=== PATIENT | male | born 1950 | race Caucasian/White ===

== ENCOUNTER 2019-12-13 13:02 | Observation (INO) ==
[2019-12-13] MEDS ORDERED: 0.9 % Sodium Chloride 1,000 ML IVC ONE (13:46)
[2019-12-13 14:21] LABS: Basophils % 0.7 %; Eosinophils # 0.1 K/mcL (0.0-0.6); Hematocrit 39.6 % (37.5-50.1); Hemoglobin 12.9 g/dL (12.9-16.9); Immature Granulocytes % 0.2 % (0-4); Lymphocytes # 0.6 K/mcL (0.6-4.6); Lymphocytes % 13.8 %; Mean Corpuscular HGB Conc 32.6 g/dL (31.6-35.5); Mean Corpuscular Volume 95.2 fL (83.0-100.0); Mean Platelet Volume 10.4 fL (9.4-12.4); Monocytes # 0.5 K/mcL (0.0-1.3); Monocytes % 11.6 %; Neutrophils # 3.2 K/mcL (1.6-8.9); Platelet Count 150 K/mcL (140-400); Red Blood Count 4.16 M/mcL (4.19-5.50); Red Cell Distribution Width 15.2 % (11.5-14.5); Segmented Neutrophils % 71.7 %; White Blood Count 4.5 K/mcL (4.3-11.1)
[2019-12-13 15:04] LABS: Troponin I 0.06 ng/mL (< 0.04)
[2019-12-13] MEDS ORDERED: levoFLOXacin 750 MG/150 ML 750 MG/150 ML BAG IVPB ONE (15:31)
[2019-12-13 16:05] LABS: Calcium 9.4 mg/dL (8.6-10.3); Potassium 4.1 mEq/L (3.5-5.1)
[2019-12-13] MEDS ORDERED: Aspirin 81 MG TAB.CHEW PO STA (16:24)
[2019-12-13 16:30] LABS: Bilirubin,Urine Negative (Negative); Blood,Urine Negative (Negative); Clarity,Urine Clear (Clear); Color,Urine Yellow (Yellow); Glucose,Urine (UA) Normal (Normal); Ketones,Urine Negative (Negative); Leukocyte Esterase,Urine Negative (Negative); Nitrite,Urine Negative (Negative); Protein,Urine Negative (Neg-Trace); Specific Gravity,Urine 1.015 (1.010-1.025); Urobilinogen,Urine Normal (Normal)
[2019-12-13] MEDS ORDERED: Naloxone 0.4 MG/ML INJ IVP PRN (17:28)
[2019-12-13] MEDS ORDERED: 0.9 % Sodium Chloride 1,000 ML IVC SCH (17:30)
[2019-12-13 17:32] LABS: VBG HCO3 21 mEq/L (21-27); VBG PCO2 30 mmHg (41-51); VBG PH 7.46 pH Units (7.32-7.42); VBG PO2 202 mmHg (25-50)
[2019-12-13] MEDS ORDERED: diazePAM 10 MG/2 ML SYRINGE IVP PRN ×5 (17:32)
[2019-12-13] MEDS ORDERED: D5% in Water 1,000 ML IVC PRN (17:34)
[2019-12-13] MEDS ORDERED: Chlorhexidine Rinse 15 ML MOUTHWASH PO PRN (17:34)
[2019-12-13] MEDS ORDERED: Dextrose Gel 15 GM/37.5 ML TUBE PO PRN ×2 (17:34)
[2019-12-13] MEDS ORDERED: *HR* Dextrose 50 % in Water (Syg) 50 ML SYRINGE IVP PRN (17:34)
[2019-12-13] MEDS ORDERED: Thiamine (B-1) 100 MG, Folic Acid 1 MG, MVI, adult with vitamin K 10 ML in 0.9 % Sodi... IVPB SCH (18:00)
[2019-12-13 18:02] LABS: Ethanol < 10 mg/dL (Less than 10); Magnesium 1.7 mg/dL (1.6-2.6); Salicylate < 2.5 mg/dL (15.0-30.0)
[2019-12-13] MEDS ORDERED: diazePAM 5 MG TABLET PO ONE (20:11)
[2019-12-13] MEDS ORDERED: Insulin LISPRO 300 UNITS/3 ML VIAL SQ SCH (21:00)
[2019-12-13] MEDS: Gabapentin 300 MG CAPSULE PO SCH (21:07)
[2019-12-13] MEDS: Apixaban 5 MG TABLET PO SCH (21:07)
[2019-12-13] MEDS: Metoprolol 100 MG TABLET PO SCH (21:07)
[2019-12-14 02:39] LABS: Calcium 8.5 mg/dL (8.6-10.3); Chol/HDL Ratio 2.2 (0-4.9); Magnesium 1.8 mg/dL (1.6-2.6); Potassium 3.6 mEq/L (3.5-5.1)
[2019-12-14 02:53] LABS: Thyroid Stimulating Hormone 0.806 mcIU/mL (0.340-5.600)
[2019-12-14 03:17] LABS: Estimated Average Glucose 134 mg/dl
[2019-12-14] MEDS: Gabapentin 300 MG CAPSULE PO SCH ×2 (08:02→15:03)
[2019-12-14] MEDS: Apixaban 5 MG TABLET PO SCH (08:02)
[2019-12-14] MEDS: Metoprolol 100 MG TABLET PO SCH (08:02)
[2019-12-14] MEDS: Insulin LISPRO 300 UNITS/3 ML VIAL SQ SCH ×2 (08:02→12:19)
[2019-12-14 11:34] VITALS: BP 123/79
== END 2019-12-14 17:32 | disposition home or self-care (01) ==
LOC: 3BNU 13:02 → EMEROOARM 13:02 → SUATTDRO 16:50 → 3BNU 18:20
PROVIDERS: ADMIT Internal Medicine; ATTEND Internal Medicine